=== PATIENT | male | born 1970 | race African-American/Black ===

== ENCOUNTER 2017-08-11 11:03 | Day surgery (SDC) | payer OTHER ==
[2017-08-11] VITALS (11 sets, daily range): BP systolic 117–130; BP diastolic 66–81
[~2017-08-11] VITALS: Ht 190.5 cm; Wt 98.4 kg
[~2017-08-11 11:03] MED LIST: ceFAZolin 1gm in D5W 55ml IVPB ONE; celeBREX 200mg Cap **SURGERY PATIENTS ONLY ORAL ONE; oxyCONTIN 20mg tab ORAL ONE
[2017-08-11] MEDS ORDERED: NKM (11:55)
--- NOTE | 2017-08-11 12:42 | Anethesia Preoperative Eval ---
Anesthesia Pre-op PMH/ROS General Date of Evaluation: Aug 11, 2017 Anesthesiologist: Willie ASA Score: ASA 2 Mallampati Score Class I : Soft palate, uvula, fauces, pillars visible Class II: Soft palate, uvula, fauces visible Class III: Soft palate, base of uvula visible Class IV: Only hard plate visible Mallampati Classification: Class II Surgeon: Vaughn Diagnosis: Left hip labral tear Surgical Procedure: Left hip arthroscopy repair of labral tear Anesthesia History: none Family History: no anesthesia problems Allergies: Coded Allergies: No Known Allergies (Unverified , 08/11/17) Medications: see eMAR Past Medical History Cardiovascular: Denies: HTN, CAD, [place], valve dz, arrhythmia, other Pulmonary: Denies: asthma, COPD, RALF, other Gastrointestinal/Genitourinary: Denies: GERD, CRI, ESRD, other Neurologic/Psychiatric: Denies: dementia, CVA, depression/anxiety, TIA, other Endocrine: Denies: DM, hypothyroidism, steroids, other HEENT: Denies: cataract (L), cataract (R), glaucoma, [place] (L), [place] (R), other Hematology/Immune: Denies: anemia, DVT, bleeding disorder, other Musculoskeletal/Integumentary: Denies: OA, RA, DJD, DDD, edema, other PSxH Narrative: Left hip arthroscopy Anesthesia Pre-op Phys. Exam Physician Exam Last Vital Signs Date Time Temp Pulse Resp B/P (MAP) Pulse Ox O2 Delivery O2 Flow Rate FiO2 08/11/17 11:53 97.1 56 19 118/71 98 Nasal Cannula 97.1 Constitutional: NAD Cardiovascular: RRR Respiratory: CTA Airway Exam Mallampati Score: Class II MO: full ROM: full Teeth: intact Anesthesia Pre-op A/P Labs see chart Studies Pre-op Studies: EKG - sr Risk Assessment & Plan Assessment: ASA II Plan: GA Status Change Before Surgery: No Pre-Antibiotics Drug: Ancef 2g Given Within 1 Hr of Incision: Yes Time Given: 13:15 INGRIS ESPINOZA M.D. Aug 11, 2017 12:42
[2017-08-11] MEDS ORDERED: Bupivacaine 0.25% Inj 30ml INJ ONE (12:45)
[2017-08-11] MEDS ORDERED: Kenalog-40 1ml Vial ONE (12:46)
[2017-08-11] MEDS ORDERED: Ketorolac 30mg Inj ONE (12:46)
[2017-08-11] MEDS ORDERED: Morphine Sulfate PF 10 ML ONE (12:46)
[2017-08-11] MEDS ORDERED: Propofol 200mg/20ml IV ONE (12:46)
[2017-08-11] MEDS ORDERED: EPINEPHrine 1mg/1ml Amp ONE ×2 (12:47→14:24)
[2017-08-11] MEDS ORDERED: Ropivacaine 5mg/ml Vial 30ml INJ ONE (12:48)
[2017-08-11] MEDS ORDERED: Duramorph PF 10mg/10ml amp IV ONE (12:50)
[2017-08-11] MEDS ORDERED: Lidocaine 1% MPF 10mg/ml 5ml ONE (13:00)
[2017-08-11] MEDS ORDERED: NS Irrig 1000ml ONE (13:00)
[2017-08-11] MEDS ORDERED: Zemuron 50mg/5ml Inj IV ONE (13:00)
[2017-08-11] MEDS ORDERED: LR 1000ml ONE (13:00)
[2017-08-11] MEDS ORDERED: Midazolam 2mg/2ml Inj ONE (13:00)
[2017-08-11] MEDS ORDERED: fentaNYL 100 mcg/2 mL IV ONE (13:00)
[2017-08-11] MEDS ORDERED: NS Irrig 4000ml IRRIG ONE (13:00)
--- NOTE | 2017-08-11 13:27 | Operative Note - PDOC ---
Operative Note Operative Note Pre-op Diagnosis: left hip labral tear Procedure: left hip arthroscopy labral repair Post-op Diagnosis: same as pre-op plus Operative Findings: consistent w/pre-op dx studies Anesthesia: regional Specimen: none Complications: none Condition: stable Estimated Blood Loss: none Implant(s) used?: Yes BRADY RODRÍGUEZ Aug 11, 2017 13:27
--- NOTE | 2017-08-11 13:27 | Pre-Procedure Note/Attestation ---
Pre-Procedure Note/Attestation Complete Prior to Procedure Planned Procedure: left Procedure Narrative: hip arthroscopy labral repair Indications for Procedure Pre-Operative Diagnosis: left hip labral tear Attestation I attest that I discussed the nature of the procedure; its benefits; risks and complications; and alternatives (and the risks and benefits of such alternatives ), prior to the procedure, with the patient (or the patient's legal petroleum products sales representative). I attest that, if there was a reasonable possibility of needing a blood transfusion, the patient (or the patient's legal petroleum products sales representative) was given the [facility] standardized written summary, pursuant to the [place] Blood Safety Act ([place] Health and Safety Code # 1645, as amended). I attest that I re-evaluated the patient just prior to the surgery and that there has been no change in the patient's H&P, except as documented below: BRADY RODRÍGUEZ Aug 11, 2017 13:27
[2017-08-11] MEDS ORDERED: LORazepam Inj 2mg/ml 1ml IV PRN (15:30)
[2017-08-11] MEDS ORDERED: Midazolam 2mg/2ml Inj IVP PRN (15:30)
[2017-08-11] MEDS ORDERED: Ketorolac 30mg Inj IV PRN (15:30)
[2017-08-11] MEDS ORDERED: fentaNYL 100 mcg/2 mL IV PRN (15:30)
[2017-08-11] MEDS ORDERED: LR 1000ml 1,000 ML IVLG SCH (15:30)
[2017-08-11] MEDS ORDERED: DiphenhydrAMINE 50mg/ml Inj IVP PRN (15:30)
[2017-08-11] MEDS ORDERED: Hydromorphone 0.5mg/0.5ml inj IVP PRN (15:30)
--- NOTE | 2017-08-11 15:30 | Immediate Post-Op Evaluation ---
Immediate Post-Op Evalulation Immediate Post-Op Evalulation Procedure: Left hip arthroscopy and labral repair Date of Evaluation: Aug 11, 2017 Time of Evaluation: 15:31 IV Fluids: 1.5L Blood Products: 0 Estimated Blood Loss: 0 Urinary Output: 0 Blood Pressure Systolic: 117 Blood Pressure Diastolic: 81 Pulse Rate: 61 Respiratory Rate: 16 O2 Sat by Pulse Oximetry: 97 Temperature (Fahrenheit): 97 Pain Score (1-10): 0 Nausea: No Vomiting: No Complications 0 Patient Status: awake, reacts, patent, none Hydration Status: adequate Drug: Ancef 2g Given Within 1 Hr of Incision: Yes Time Given: 13:15 INGRIS ESPINOZA M.D. Aug 11, 2017 15:29
--- NOTE | 2017-08-11 15:30 | 48 Hour Post Anesthesia Eval ---
Post Anesthesia Evaluation Procedure: Left hip arthroscopy and labral repair Date of Evaluation: Aug 11, 2017 Airway: patent Nausea: No Vomiting: No Pain Intensity: 0 Hydration Status: adequate Cardiopulmonary Status: at baseline Mental Status/LOC: patient returned to baseline Post-Anesthesia Complications: 0 Follow-up care needed: ready to discharge INGRIS ESPINOZA M.D. Aug 11, 2017 15:30
--- NOTE | 2017-08-11 16:25 | Diagnostic Imaging Report ---
Indication: Pain, intraoperative Technique: Intraoperative images Comparison: none Findings: Intraoperative images demonstrate needle and subsequent tool overlying the left hip, with distraction of the hip joint Impression: Intraoperative imaging, as described
[2017-08-11] MEDS ORDERED: HYDROmorphone 1mg/ml Carpuject SUBQ PRN (20:00)
[2017-08-11] MEDS ORDERED: D5 1/2NS 1,000 ML IV SCH (20:00)
[2017-08-11] MEDS ORDERED: Tylenol #3 tab (300mg/30mg) ORAL PRN (20:00)
[2017-08-11] MEDS ORDERED: Norco 5mg/325mg tab ORAL PRN (20:00)
--- NOTE | 2017-08-11 21:15 | Operative Note - Dictated ---
DATE OF OPERATION: 08/11/2017 PREOPERATIVE DIAGNOSES: 1. Left hip traumatic labral tear. 2. Superolateral acetabular chondral damage. 3. CAM impingement. POSTOPERATIVE DIAGNOSES: 1. Left hip traumatic labral tear. 2. Superolateral acetabular chondral damage. 3. CAM impingement. PROCEDURES: 1. Left shoulder arthroscopic anterior labral debridement. 2. Chondroplasty, superoanterior aspect of acetabulum. 3. Decompression of CAM lesion. SURGEON: Uriah Mendes M.D. ANESTHESIA: General. INDICATION FOR PROCEDURE: The patient is a pleasant 46-year-old gentleman, who had traumatically induced left hip pain. He had CAM lesion on radiographs and was noted to have MRI which showed labral tear with paralabral cyst. He had continued anterior groin pain. He failed conservative treatment and elected to undergo left hip arthroscopy, labral debridement versus repair with concurrent CAM decompression. Risks, limitations, expectations, complications of procedure were discussed in detail. All questions were addressed. DESCRIPTION OF PROCEDURE: Informed consent was obtained. The patient was brought to the operating room and placed under general anesthesia. The patient was placed on the fracture table. We padded all the extremities. Under fluoroscopic guidance, axial traction with the leg abducted was all done. Once that was done, the leg was adducted opening up the hip joint. The left hip was prepped and draped in sterile manner and traction time was maintained and noted. Left hip was prepped and draped in sterile manner. Time-out was performed. Ancef was administered. Spinal needle was then placed for the anterolateral portal. A trocar was placed over guidewire. Once that was done, a second working portal was established as well anterolateral. A second trocar was placed over the guidewire. At this point, the capsule release was performed to better allow mobilization of the hip joint. Once the capsular release was performed, attention was turned towards the hip. The synovial tissue and part of the rectus head was reflected off the superior acetabulum to better visualize the labrum. He had tear both on the anterior and posterior labrum. This area of labral pathology was debrided down to stable margin of tissue. Once this was done, the camera was placed into the hip joint itself. There was some superolateral chondral damage. Gentle chondroplasty was performed using the shaver. Once the chondroplasty was completed, attention towards labrum. Once the labral tears were debrided, it was further probed to see if labral base refixation was necessary. The labral tissue was nice and stable after the debridement. It was felt that there was inadequate labral tissue to necessarily perform labral refixation, so with the debridement and the chondroplasty of the acetabulum, he should have improvement in some of his symptomatology. Once that was done, the hip was taken out of traction and internally rotated. The CAM lesion was identified. The capsule extended into trochanteric area to better visualize the femoral head. A 5.5 mm bur was then used to perform CAM decompression. Once that was done, the instruments were removed. Intraoperative imaging showed the hip was reduced. Portal sites were closed using 3-0 Monocryl sutures. Intraarticular injection containing 0.25% Marcaine with epinephrine, 40 mg of Kenalog, 30 mg of Toradol, 5 mL of Duramorph was injected. The patient was awoken and taken to recovery room with stable vital signs. ESTIMATED BLOOD LOSS: None. COMPLICATION: None. SPECIMENS: None. IMPLANTS: None. Uriah Mendes M.D. DR: Rc JOB#: [id number] CC:
== END 2017-08-11 18:30 | disposition home or self-care (01) ==
LOC: SUR 11:03
DX: S73.102A Unspecified sprain of left hip, initial encounter (principal); M24.152 Other articular cartilage disorders, left hip; M25.852 Other specified joint disorders, left hip; X58.XXXA Exposure to other specified factors, initial encounter; Y93.9 Activity, unspecified; Y92.9 Unspecified place or not applicable
CPT/HCPCS: 29862; 73501; 76001; 97161; J0171; J0690; J1170; J1885; J2250; J2274; J2704; J2795; J3010; J3301; J3490; J7120; 94003; 94150